=== PATIENT | male | born 1985 | race Caucasian/White ===

== ENCOUNTER 2025-06-23 08:57 | Outpatient (REF) | payer OTHER, SELFPAY ==
--- NOTE | 2025-06-23 09:00 | EMG_ITS ---
Chief complaint: Right wrist pain, occasional bilateral hand numbness, especially at night Reason for referral: Evaluate for Carpal Tunnel Syndrome, ulnar neuropathy or cervical radiculopathy Referred by: Dr. Arias Procedure done: Bilateral upper extremities NCS/EMG Precautions and/or limitations: None The limb temperature was monitored continuously and remained between 32-36 degrees C during the performance of the NCS. Nerve Conduction Studies Anti Sensory Summary Table ?Stim Site NR Onset (ms) Norm Onset (ms) Peak (ms) Norm Peak (ms) O-P Amp (?V) Norm O-P Amp Site1 Site2 Delta-0 (ms) Dist (cm) Jac (m/s) Norm Jac (m/s) Left Median Anti Sensory (2nd Digit) Wrist ? 2.5 3.4 <3.6 36.7 >10 Wrist 2nd Digit 2.5 14.0 56 Right Median Anti Sensory (2nd Digit) Wrist ? 2.3 3.3 <3.6 37.0 >10 Wrist 2nd Digit 2.3 14.0 61 Left Ulnar Anti Sensory (5th Digit) Wrist ? 2.6 3.3 <3.7 21.4 >15.0 Wrist 5th Digit 2.6 14.0 54 Right Ulnar Anti Sensory (5th Digit) Wrist ? 2.3 3.2 <3.7 23.2 >15.0 Wrist 5th Digit 2.3 14.0 61 Motor Summary Table ?Stim Site NR Onset (ms) Norm Onset (ms) O-P Amp (mV) Norm O-P Amp iAmp (mV) Amp (1st) (%) Site1 Site2 Delta-0 (ms) Dist (cm) Jac (m/s) Norm Jac (m/s) Left Median Motor (Abd Poll Brev) Wrist ? 3.3 <3.9 8.8 >4.5 10.7 100.0 Elbow Wrist 3.9 22.0 56 >45 Elbow ? 7.2 9.1 11.1 103.4 Right Median Motor (Abd Poll Brev) Wrist ? 3.4 <3.9 9.5 >4.5 11.6 100.0 Elbow Wrist 4.2 23.0 55 >45 Elbow ? 7.6 9.4 11.6 98.9 Left Ulnar Motor (Abd Dig Minimi) Wrist ? 2.9 <3.0 5.2 >5 5.9 100.0 B Elbow Wrist 3.5 20.0 57 >45 B Elbow ? 6.4 5.0 5.7 96.2 A Elbow B Elbow 1.9 10.0 53 >45 A Elbow ? 8.3 4.6 5.2 88.5 Right Ulnar Motor (Abd Dig Minimi) Wrist ? 2.7 <3.0 5.4 >5 6.5 100.0 B Elbow Wrist 3.4 20.0 59 >45 B Elbow ? 6.1 5.1 6.2 94.4 A Elbow B Elbow 1.0 10.0 100 >45 A Elbow ? 7.1 4.9 6.3 90.7 Comparison Summary Table ?Stim Site NR Peak (ms) Norm Peak (ms) P-T Amp (?V) Site1 Site2 Delta-P (ms) Norm Delta (ms) Left Median/Radial Dig I Comparison (Digit 1 - 10cm) Median ? 2.9 <2.9 44.0 Median Radial 0.3 Radial ? 2.6 <2.8 19.7 Right Median/Radial Dig I Comparison (Digit 1 - 10cm) Median ? 2.6 <2.9 62.9 Median Radial 0.2 Radial ? 2.8 <2.8 20.8 EMG ?Side Muscle Nerve Root Ins Act Fibs Psw Amp Dur Poly Recrt Int Pat Comment Right 1stDorInt Ulnar C8-T1 Nml Nml Nml Nml Nml 0 Nml Complete Right FlexCarRad Median C6-7 Nml Nml Nml Nml Nml 0 Nml Complete Right Biceps Musculocut C5-6 Nml Nml Nml Nml Nml 0 Nml Complete Right Triceps Radial C6-7-8 Nml Nml Nml Nml Nml 0 Nml Complete Right Deltoid Axillary C5-6 Nml Nml Nml Nml Nml 0 Nml Complete Left 1stDorInt Ulnar C8-T1 Nml Nml Nml Nml Nml 0 Nml Complete Left FlexCarRad Median C6-7 Nml Nml Nml Nml Nml 0 Nml Complete Left Biceps Musculocut C5-6 Nml Nml Nml Nml Nml 0 Nml Complete Left Triceps Radial C6-7-8 Nml Nml Nml Nml Nml 0 Nml Complete Left Deltoid Axillary C5-6 Nml Nml Nml Nml Nml 0 Nml Complete FINDINGS: All motor and sensory nerves tested showed normal latencies, amplitudes and conduction velocities. Concentric needle EMG was performed in selected muscles of the bilateral upper extremities. Study did not reveal signs of electric abnormalities as shown in the table above. IMPRESSION: 1. This is a normal study. 2. There is no electrodiagnostic evidence for median neuropathy, ulnar neuropathy, brachial plexopathy, or cervical radiculopathy. Thank you for your kind referral. Lesley Jaquez MD, ULISSES Board Certified, [place] [employer] (ABPMR) Board Certified, [place] [employer] Electro[employer] (ABEM) CODIN [phone] x 2 MTDD
== END 2025-06-23 08:58 | disposition home or self-care (01) ==
LOC: HO.NEURO 08:57
PROVIDERS: PCP Internal Medicine; Visit Provider Orthopaedic Surgery
DX: M25.531 Pain in right wrist (principal); R20.0 Anesthesia of skin
CPT/HCPCS: 95886; 95911

== ENCOUNTER → 2025-06-23 09:00 | Outpatient (BNV) | payer OTHER, SELFPAY | PROVIDERS: PCP Internal Medicine; Visit Provider Physical Medicine & Rehabilitation | DX: R20.0 Anesthesia of skin (principal); M25.531 Pain in right wrist | CPT/HCPCS: 95886; 95911 ==